=== PATIENT | female | born 1980 | race Hispanic/Latino ===

== ENCOUNTER 2020-12-21 07:09 | Day surgery (SDC) | payer BC ==
[2020-12-21] VITALS (7 sets, daily range): BP systolic 114–140; BP diastolic 74–94
[~2020-12-21] VITALS: Ht 162.6 cm; Wt 73.5 kg
[~2020-12-21 07:09] MED LIST: POLY17PO4 PO; SODIUM CHLORIDE 0.9% 1000ML 1,000 ML IV ONE
[2020-12-21] MEDS ORDERED: PROPOFOL 10 MG/ML 20ML VIAL IV ONE ×2 (10:13→10:22)
== END 2020-12-21 11:40 | disposition home or self-care (01) ==
LOC: DAH 07:09
PROVIDERS: ATTEND Internal Medicine
DX: Q85.8 Other phakomatoses, not elsewhere classified (principal); Z20.822 Contact with and (suspected) exposure to COVID-19; K31.7 Polyp of stomach and duodenum; K29.50 Unspecified chronic gastritis without bleeding; K44.9 Diaphragmatic hernia without obstruction or gangrene; D50.9 Iron deficiency anemia, unspecified; K22.8 Other specified diseases of esophagus; K76.89 Other specified diseases of liver; D64.9 Anemia, unspecified; E78.5 Hyperlipidemia, unspecified; K59.00 Constipation, unspecified; Z86.010 Personal history of colon polyps
CPT/HCPCS: 43251; 43259; A4215 ×2; A4221; A4222; A4223; A4606; A4620; A4657; A4663; J2704 ×2; J7030; U0003